=== PATIENT | male | born 1965 | race Caucasian/White ===

== ENCOUNTER 2018-10-11 05:54 | Day surgery (SDC) | payer OTHER ==
[2018-10-11] VITALS (15 sets, daily range): BP systolic 115–149; BP diastolic 64–95; PULSE 68–86; RESP 12–25; Ht 175.3 cm; Wt 97.3 kg
[~2018-10-11] VITALS: Ht 175.3 cm; Wt 97.3 kg
[~2018-10-11 05:54] MED LIST: PANT40TA4 PO; SOD CHLORIDE 0.9% 1,000 ML IV SCH
[2018-10-11] MEDS ORDERED: SOD CHLORIDE 0.9% 1,000 ML IV SCH (07:00)
[2018-10-11] MEDS ORDERED: CEFAZOLIN 2 GM/50 ML (PMX) 50 ML IVPB ONE (07:00)
[2018-10-11] MEDS ORDERED: BUPIVACAINE 0.25%/EPI (SDV) 10 ML INJ INJ ONE (07:11)
[2018-10-11] MEDS ORDERED: BUPIVACAINE 0.5%/EPI (SDV) 30 ML INJ INJ ONE (07:11)
[2018-10-11] MEDS ORDERED: ACETAMINOPHEN 500 MG TAB PO ONE (08:00)
[2018-10-11] MEDS ORDERED: PROPOFOL 40 ML ONE (08:10)
[2018-10-11] MEDS ORDERED: LIDOCAINE 2% (SDV) 5 ML INJ ONE (08:10)
[2018-10-11] MEDS ORDERED: FENTAnyl 50 MCG/ML VIAL ONE (08:10)
[2018-10-11] MEDS ORDERED: ROCURONIUM 50 MG INJ ONE (08:10)
[2018-10-11] MEDS ORDERED: ONDANSETRON 4 MG INJ ONE (08:11)
[2018-10-11] MEDS ORDERED: FAMOTIDINE 20 MG INJ ONE (08:11)
[2018-10-11] MEDS ORDERED: MIDAZOLAM 1 MG/ML 2 ML INJ ONE (08:11)
[2018-10-11] MEDS ORDERED: ROPIVACAINE 0.5 % 30 ML VIAL ONE ×2 (08:34→09:01)
--- NOTE | 2018-10-11 08:50 | HPN ---
Date/Time of Note Date/Time of Note DATE: 10/11/18 TIME: 08:49 Interval H&P Admission Note Pt. seen H&P reviewed: No system changes STEVAN BAEZA MD Oct 11, 2018 08:49
--- NOTE | 2018-10-11 08:54 | PREAC ---
Date/Time of Note Date/Time of Note DATE: 10/11/18 TIME: 08:48 Anesthesia Eval and Record Evaluation Time Pre-Procedure Interview DATE: 10/11/18 TIME: 08:48 Age 53 Sex male NPO: 8 hrs Preoperative diagnosis cholecystitis Planned procedure Lap cholecystectomy Past Medical History Past Medical History: Includes GI: GERD, Obesity Surgery & Anesthesia Issues No known issue Meds Anticoagulation: No Beta Ifeanyi within 24 hr: No Reason Beta Ifeanyi not given: Pt. not on B-Ifeanyi Reported Medications Pantoprazole* (Pantoprazole*) 40 Mg Tablet.dr, 40 MG PO DAILY 10/11/18 Current Medications Sodium Chloride 1,000 ml @ 75 mls/hr [id number] IV Last administered on 10/11/18at 07:37; Admin Dose 75 MLS/HR; Start 10/11/18 at 07:00 Meds reviewed: Yes Allergies Coded Allergies: No Known Drug Allergy (Verified Allergy, Unknown, 10/11/18) Allergies Reviewed: Yes Labs/Studies Labs Reviewed: Reviewed by anesthesiologist test: N/A Studies: ECG (nsr, nml), CXR (unremarkable cxr) Pre-procedure Exam Last vitals Vital Signs Date Temp Pulse Resp B/P (MAP) Pulse Ox O2 O2 Flow FiO2 Time Delivery Rate 10/11/18 97.7 70 16 130/84 96 Room Air 07:25 (99) Airway: Adequate mouth opening, Adequate thyromental dist Mallampati: Mallampati II Teeth: Normal (missing molars) Lung: Normal Heart: Normal ASA Physical Status ASA physical status: 2 Emergency: None Planned Anesthetic General/MAC: ETT Planned Pain Management Single shot nerve block Pre-operative Attestations Prior to commencing anesthesia and surgery, the patient was re-evaluated, there was verification of: *The patient's identity *The results of appropriate recent lab work and preoperative vital signs *The above evaluation not changing prior to induction *Anesthetic plan, risk benefits, alternative and complications discussed with patient/family; questions answered; patient/family understands, accepts and wishes to proceed. STANISLAV SHIRLEY Oct 11, 2018 08:54
[2018-10-11] MEDS ORDERED: BUPIVACAINE 0.5%/EPI (SDV) 30 ML INJ ONE (08:56)
[2018-10-11] MEDS ORDERED: morphine 2 MG INJ IV PRN ×3 (09:00→11:00)
[2018-10-11] MEDS ORDERED: HYDROmorphONE 1 MG/5 ML IV SYRINGE IV PRN ×3 (09:00)
[2018-10-11] MEDS ORDERED: ALBUTEROL 0.083% (NEB) 2.5 MG/3 ML AMP HHN PRN (09:00)
[2018-10-11] MEDS ORDERED: hydrALAzine 20 MG INJ IV PRN (09:00)
[2018-10-11] MEDS ORDERED: EPHEDrine 25 MG/5 ML SYG IV PRN (09:00)
[2018-10-11] MEDS ORDERED: MEPERIDINE 25 MG INJ IV PRN (09:00)
[2018-10-11] MEDS ORDERED: OXYCODONE/ACETAMINOPHEN (5/325) TAB PO PRN ×2 (09:00)
[2018-10-11] MEDS ORDERED: ONDANSETRON 4 MG INJ IV PRN ×2 (09:00→11:00)
[2018-10-11] MEDS ORDERED: DIPHENHYDRAMINE 50 MG INJ IV PRN (09:00)
[2018-10-11] MEDS ORDERED: FENTAnyl 50 MCG/ML VIAL IV PRN (09:00)
[2018-10-11] MEDS ORDERED: LABETALOL HCL 20MG INJ IV PRN (09:00)
[2018-10-11] MEDS ORDERED: SUGAMMADEX SODIUM 200 MG/2 ML VIAL IV ONE (09:41)
--- NOTE | 2018-10-11 10:55 | OPR ---
Date/Time of Note Date/Time of Note DATE: 10/11/18 TIME: 10:49 Operative Report Procedure Date: Oct 11, 2018 Preoperative Diagnosis Cholelithiasis/chronic cholecystitis Postoperative Diagnosis Cholelithiasis/chronic cholecystitis Operation/Procedure Performed Laparoscopic cholecystectomy Surgeon see signature line Auto Painter None Anesthesia Type: general Anesthesiologist: STANISLAV SHIRLEY Estimated Blood Loss: minimal Transfusion none Specimen Gallbladder Grafts/Implants none Complications none Pt Condition Post Procedure: stable Disposition: PACU Indications The patient is a 53-year-old male who presented with to the office complaining of epigastric and right upper quadrant abdominal pain. The patient had clinical signs and symptoms of chronic cholecystitis and biliary colic which was confirmed via an ultrasound which showed the presence of gallstones. He was also noted on gastrointestinal work-up to have findings consistent with Bowen's esophagus, gastritis and GERD. The patient was scheduled for laparoscopic cholecystectomy; possible open as definitive treatment to prevent further sequelae of gallstone disease which include but are not limited to: Gangrenous cholecystitis, choledocholithiasis, gallstone pancreatitis, ascending cholangitis, etc. All risks and benefits of the procedure including but not limited to: Wound infection, excessive bleeding, common bile duct injury, postoperative biliary leak, retained common bile duct stone, injury to intra- abdominal organs, conversion to open procedure, possible need for subsequent surgeries, etc. were all explained to the patient in full detail. We also discussed that given his findings of GERD, gastritis and Bowen's esophagus his symptoms may not be completely resolved with cholecystectomy alone. He fully understood and wished to proceed with the procedure. Informed consent was therefore obtained. Procedure Description The patient was brought to the operating room and placed supine on the operating table. Bilateral sequential compression devices were placed on both lower extremities. A dose of broad-spectrum perioperative intravenous antibiotics was given. After the induction of smooth general endotracheal anesthesia the patient's abdomen was prepped and draped in the standard surgical fashion. A tap block was performed by the anesthesiologist prior to prepping the patient will be documented separately by him. The patient had a large right paramedian incision from prior open appendectomy. After performance of the surgical t imeout a 5 mm incision was made in the superior umbilicus and a Veress needle was used to access the intra-abdominal cavity atraumatically. Pneumoperitoneum was then obtained and the Veress needle was exchanged for a 5 mm trocar through which a 5 mm laparoscope was placed. Three further working ports were then placed a 12 mm port in the sub-xiphoid region and two 5 mm ports in the right upper quadrant. All port sites were anesthetized with 0.25% Marcaine with epinephrine prior to incision. Diagnostic laparoscopy showed a contracted gallbladder in the right upper quadrant. There were dense omental adhesions to the anterior surface of the gallbladder. These were taken down using combination of blunt dissection and hook electrocautery. Using atraumatic gras pers the gallbladder was grasped and retracted superiorly and laterally exposing the area of Phoenix's pouch. Dissection was begun in this area using a combination of blunt dissection and hook electrocautery. The cystic duct was identified as it entered straight into the neck of the gallbladder. Cystic duct anatomy was confirmed using fluorescence imaging and indocyanine green dye. Cystic duct was dissected free of surrounding tissues and clipped proximally and distally x 3 and transected using EndoShears. Dissection was then continued posteriorly. The cystic artery was identified and dissected free of surrounding tissues. It too was clipped proximally and distally x 3 and transected using EndoShears. The gallbladder was then dissected off the liver bed using electrocautery. On dissection of the gallbladder from the liver bed it was noted that the patient had a large gallstone which was eroding through the posterior wall of the gallbladder. Once completely free the gallbladder was placed in an Endo Catch bag and withdrawn through the subxiphoid port site and passed off the field as specimen. Hemostasis was then inspected for and noted to be adequate. The abdomen was then irrigated with several liters of warm normal saline and the irrigant returned crystal clear. The fascia of the subxiphoid port site was then reapproximated using an aurelia-close device. Pneumoperitoneum was then released and all remaining trochars were withdrawn under direct vision. The subcutaneous tissues were irrigated with more warm n ormal saline. The skin was then reapproximated using 4-0 Monocryl sutures in subcuticular fashion. The incisions were cleaned and Dermabond was applied to the incisions and the patient was awoken from anesthesia and transported to the recovery room in stable condition. All counts were correct at the end of the case x 2. STEVAN BAEZA MD Oct 11, 2018 10:55
[2018-10-11] MEDS ORDERED: IBUPROFEN 600 MG TAB PO PRN (11:00)
[2018-10-11] MEDS ORDERED: HYDROCODONE/APAP (5/325) TAB PO PRN ×2 (11:00)
[2018-10-11] MEDS ORDERED: KETOROLAC 30 MG INJ IV PRN (11:00)
[2018-10-11] MEDS: FENTAnyl 50 MCG/ML VIAL IV PRN ×2 (11:19→11:33)
--- NOTE | 2018-10-11 12:07 | PAC ---
Date/Time of Note Date/Time of Note DATE: 10/11/18 TIME: 12:06 Post-Anesthesia Notes Post-Anesthesia Note Last documented vital signs Vital Signs Date Temp Pulse Resp B/P (MAP) Pulse Ox O2 O2 Flow FiO2 Time Delivery Rate 10/11/18 98.1 68 84 13 16 116/72 92 99 Room 11:59 1058 (87) 149/ Air RA 93 10/11/18 8.0 11:14 10/11/18 98.1 11:01 Activity: WNL Respiratory function: WNL Cardiovascular function: WNL Mental status: Baseline Pain reasonably controlled: Yes Hydration appropriate: Yes Nausea/Vomiting absent: Yes STANISLAV SHIRLEY Oct 11, 2018 12:07
== END 2018-10-11 14:21 | disposition home or self-care (01) ==
LOC: SDS 05:54
PROVIDERS: ATTEND Surgery
DX: K80.10 Calculus of gallbladder with chronic cholecystitis without obstruction (principal)
CPT/HCPCS: 47562; J0690; J2175; J2250; J2405; J2795; J3010; J7030; Z7512; Z7610; 88304